=== PATIENT | male | born 1980 | race American Indian/Alaskan Native ===

== ENCOUNTER 2016-08-08 12:26 | Emergency (ER) | payer MEDICAID ==
[2016-08-08 13:03] LABS: Hematocrit 27.5 % (35.5-45.6); Hemoglobin 8.8 gm/dl (11.8-15.2); Mean Corpuscular HGB Conc 32 % (32-34); Mean Corpuscular Volume 74 fl (84-94); Platelet Count 651 K/mm3 (140-440); Red Blood Count 3.69 M/mm3 (3.65-5.03); Red Cell Distribution Width 18.4 % (13.2-15.2); White Blood Count 6.8 K/mm3 (4.5-11.0)
[2016-08-08 13:12] LABS: Anion Gap 21 mmol/L; BUN/Creatinine Ratio 18.33; Blood Urea Nitrogen 11 mg/dL (9-20); Calcium 9.3 mg/dL (8.4-10.2); Carbon Dioxide 22 mmol/L (22-30); Chloride 95.4 mmol/L (98-107); Glucose 90 mg/dL (75-100); Potassium 4.2 mmol/L (3.6-5.0); Sodium 134 mmol/L (137-145)
[2016-08-08 13:20] LABS: Mean Corpuscular Hemoglobin 24 pg (28-32)
--- NOTE | 2016-08-08 13:25 | XRay Report ---
ROUTINE CHEST, TWO VIEWS: HISTORY: Shortness of breath. A moderate size right perihilar infiltrate has developed since 06/10/15. This appears to be located in the superior segment of the right lower lobe. The left lung is clear. No pleural effusion or pneumothorax. Heart and mediastinal structures are unremarkable. Right subclavian vascular stent is noted. The bony structures are intact. IMPRESSION: Right lung infiltrate consistent with pneumonia. If no fever is present, further evaluation with CT chest with contrast is recommended.
[2016-08-08 14:06] LABS: Blastocytes % (Manual) 0 %; Eosinophils % (Manual) 0 % (0.0-4.3); Hypochromasia 1+
[2016-08-08 14:07] LABS: Anisocytosis 1+; Diff Status Complete; Ovalocytes 1+; Platelet Estimate Consistent w Auto
[2016-08-08] MEDS ORDERED: ZITHROMAX 500 MG in NACL 0.9% 250ML 250 ML IV ONE (23:18)
[2016-08-08] MEDS ORDERED: NACL 0.9% 1000 ML 1,000 ML IV ONE ×2 (23:18→23:56)
[2016-08-08] MEDS ORDERED: ROCEPHIN/NS 1 GM/50 ML 1 GM/50 ML BAG IV ONE (23:18)
[2016-08-08] MEDS ORDERED: DELTASONE PO ONE (23:46)
[2016-08-08] MEDS ORDERED: BACTRIM DS PO ONE (23:46)
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
[2016-08-09 00:49] VITALS: BP 113/68
== END 2016-08-09 00:50 | disposition left against medical advice (07) ==
LOC: ED 12:26
DX: J18.9 Pneumonia, unspecified organism (principal); F17.210 Nicotine dependence, cigarettes, uncomplicated; Z91.14 Patient's other noncompliance with medication regimen
CPT/HCPCS: 36415; 71020; 80048; 85007; 85025; 87040; 93005; 93010; 96365; 96368; 99284; J0456; J0696; J7030; J7050; J7512

== ENCOUNTER 2017-02-13 01:28 | Inpatient (IN) | payer MEDICAID ==
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
[2017-02-13] MEDS ORDERED: VANCOMYCIN VIAL IV ONE (02:39)
[2017-02-13] MEDS ORDERED: VANCOMYCIN 1,250 MG in NACL 0.9% 250ML 250 ML IV ONE (03:00)
[2017-02-13] MEDS ORDERED: VANCOMYCIN PHARMACY TO DOSE IV ONE (03:00)
--- NOTE | 2017-02-13 03:21 | XRay Report ---
FINAL REPORT EXAM: XR CHEST 1V AP HISTORY: SHORT OF BREATH TECHNIQUE: An AP view of the chest was submitted. There are no previous studies available for comparison FINDINGS: The heart size and mediastinum appear normal. The lungs are not congested. There is localized increased markings in the right lung base secondary to scarring/atelectasis. Pleural fluid is not seen. There is a vascular stent seen superimposed over the right apex. The bones and soft tissues otherwise well maintained. IMPRESSION: Localized increased markings in the right lung base secondary to scarring/atelectasis.
[2017-02-13 04:48] LABS: Hematocrit 27.3 % (35.5-45.6); Hemoglobin 8.8 gm/dl (11.8-15.2); Mean Corpuscular HGB Conc 32 % (32-34); Mean Corpuscular Volume 76 fl (84-94); Platelet Count 596 K/mm3 (140-440); Red Blood Count 3.59 M/mm3 (3.65-5.03); Red Cell Distribution Width 19.2 % (13.2-15.2); White Blood Count 6.7 K/mm3 (4.5-11.0)
[2017-02-13 04:51] LABS: Mean Corpuscular Hemoglobin 25 pg (28-32)
[2017-02-13 05:42] LABS: Alanine Aminotransferase 10 units/L (7-56); Albumin 2.9 g/dL (3.9-5); Albumin/Globulin Ratio 0.7 %; Alkaline Phosphatase 513 units/L (35-129); Anion Gap 18 mmol/L; BUN/Creatinine Ratio 26; Blood Urea Nitrogen 13 mg/dL (9-20); Calcium 8.6 mg/dL (8.4-10.2); Carbon Dioxide 25 mmol/L (22-30); Glucose 109 mg/dL (75-100); Potassium 4.4 mmol/L (3.6-5.0); Sodium 136 mmol/L (137-145); Total Protein 7.3 g/dL (6.3-8.2)
[2017-02-13] MEDS ORDERED: NACL 0.9% 1000 ML 1,000 ML IV ONE (05:42)
[2017-02-13] MEDS ORDERED: TORADOL IV ONE (05:44)
[2017-02-13] MEDS ORDERED: TYLENOL PO ONE (05:44)
[2017-02-13] MEDS ORDERED: ZOSYN/NS 3.375GM/50ML 3.375 GM/50 ML BAG IV SCH ×2 (06:00→14:00)
[2017-02-13] MEDS ORDERED: TYLENOL PO PRN (06:10)
[2017-02-13] MEDS ORDERED: DULCOLAX PR PRN (06:10)
[2017-02-13] MEDS ORDERED: MILK OF MAGNESIA PO PRN (06:10)
[2017-02-13] MEDS ORDERED: ZOFRAN IV PRN (06:10)
[2017-02-13] MEDS ORDERED: DIFLUCAN 200 MG/100 ML BAG IV ONE (06:17)
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
--- NOTE | 2017-02-13 07:28 | Cat Scan Report ---
CT HEAD WITHOUT CONTRAST INDICATION: Syncope. COMPARISON: None similar. FINDINGS: Noncontrast head CT demonstrates symmetric ventricles and sulci, though top normal/slightly prominent for the patient's age. Mild, benign bilateral basal ganglia calcifications. Slight periventricular hypodensities. No definite acute infarct, hemorrhage mass effect or midline shift. No abnormal extra axial fluid collections. Normal posterior fossa with preserved basilar cisterns. Normal eye globes. Mild ethmoid and sphenoid sinusitis, right more than left. Clear remainder imaged paranasal sinuses and mastoid air cells. Grossly intact calvarium and scalp. CONCLUSION: No acute intracranial CT abnormality with mild atrophy and sinusitis noted, as above. Please correlate. Thank you for the opportunity to participate in this patient's care.
[2017-02-13] MEDS ORDERED: TYLENOL ONE (08:34)
[2017-02-13 08:48] LABS: Anisocytosis 1+; Basophils % (Manual) 0 % (0.0-1.8); Blastocytes % (Manual) 0 %; Eosinophils % (Manual) 0 % (0.0-4.3); Hypochromasia 1+
[2017-02-13 08:49] LABS: Diff Status Complete; Elliptocytes Few; Ovalocytes Few
[2017-02-13] MEDS ORDERED: TORADOL ONE (09:21)
[2017-02-13] MEDS ORDERED: LOVENOX SUB-Q SCH (10:00)
[2017-02-13] MEDS ORDERED: DIFLUCAN PO SCH (10:00)
[2017-02-13 11:03] LABS: Bilirubin,Urine NEG (Negative); Blood,Urine NEG (Negative); Ketones,Urine NEG (Negative); Leukocyte Esterase,Urine NEG (Negative); Mucus,Urine FEW /HPF; Nitrite,Urine NEG (Negative); Protein,Urine <15 mg/dL mg/dL (Negative); Urobilinogen,Urine < 2.0 mg/dL (<2.0)
[2017-02-13] MEDS: LOVENOX SUB-Q SCH (13:15)
[2017-02-13] MEDS: NACL 0.9% 1000 ML 1,000 ML IV SCH (13:17)
[2017-02-13] MEDS: ZOSYN/NS 4.5GM/100ML 4.5 GM/100 ML VIAL IV SCH ×2 (15:03→22:34)
--- NOTE | 2017-02-13 17:39 | Event Note ---
Date: 02/13/17
[2017-02-14] MEDS: NACL 0.9% 1000 ML 1,000 ML IV SCH ×2 (05:26→23:48)
[2017-02-14] MEDS: ZOSYN/NS 4.5GM/100ML 4.5 GM/100 ML VIAL IV SCH ×3 (05:44→22:09)
[2017-02-14 06:28] LABS: Anion Gap 19 mmol/L; BUN/Creatinine Ratio 18; Blood Urea Nitrogen 7 mg/dL (9-20); Calcium 8.4 mg/dL (8.4-10.2); Carbon Dioxide 22 mmol/L (22-30); Chloride 97.5 mmol/L (98-107); Glucose 89 mg/dL (75-100); Potassium 4.2 mmol/L (3.6-5.0); Sodium 134 mmol/L (137-145)
[2017-02-14 06:43] LABS: Red Blood Count 3.29 M/mm3 (3.65-5.03)
[2017-02-14 06:44] LABS: Hematocrit 24.8 % (35.5-45.6); Hemoglobin 8.2 gm/dl (11.8-15.2); Mean Corpuscular HGB Conc 33 % (32-34); Mean Corpuscular Hemoglobin 25 pg (28-32); Mean Corpuscular Volume 75 fl (84-94); Platelet Count 553 K/mm3 (140-440)
[2017-02-14 07:53] LABS: Basophils % (Manual) 0 % (0.0-1.8); Blastocytes % (Manual) 0 %; Eosinophils % (Manual) 0 % (0.0-4.3)
[2017-02-14 07:54] LABS: Anisocytosis 1+; Diff Status Complete; Elliptocytes 1+; Platelet Estimate Consistent w Auto
[2017-02-14] MEDS: LOVENOX SUB-Q SCH ×2 (09:21→09:23)
[2017-02-14] MEDS: DIFLUCAN PO SCH (09:22)
--- NOTE | 2017-02-14 15:06 | Progress Note ---
Assessment and Plan Assessment and Plan Assessment SIRS Syncope Oral candidiasis HIV Plan Continue Zosyn, status post vancomycin and Zosyn in the emergency room Follow cultures, check d-dimer, VT head, cardiac enzymes Start fluconazole, DVT prophylaxis/Gi prophylaxis Subjective Date of service: 02/14/17 Principal diagnosis: Sirs Interval history: Improving Objective - Constitutional Vitals: Vital Signs - 12hr 02/14/17 02/14/17 05:10 07:35 Temperature 99.3 F 97.9 F Pulse Rate 83 79 Respiratory 19 14 Rate Blood Pressure 97/55 95/54 O2 Sat by Pulse 98 97 Oximetry General appearance: Present: no acute distress, well-nourished - EENT Eyes: PERRL, EOM intact ENT: hearing intact, clear oral mucosa Ears: bilateral: normal - Neck Neck: supple, normal ROM - Respiratory Respiratory effort: normal Respiratory: bilateral: CTA - Breasts Breasts: normal - Cardiovascular Rhythm: regular Heart Sounds: Present: S1 & S2. Absent: gallop, rub Extremities: pulses intact, No edema, normal color, Full ROM - Gastrointestinal General gastrointestinal: Present: soft, non-tender, non-distended, normal bowel sounds - Genitourinary Male genitourinary: normal - Integumentary Integumentary: clear, warm, dry - Musculoskeletal Musculoskeletal: 1, strength equal bilaterally - Neurologic Neurologic: moves all extremities - Psychiatric Psychiatric: memory intact, appropriate mood/affect, intact judgment & insight - Labs CBC & Chem 7: 02/14/17 05:56 02/14/17 05:56 Labs: Abnormal lab results 02/14/17 02/14/17 Range/Units 05:56 05:56 RBC 3.29 L (3.65-5.03) M/mm3 Hgb 8.2 L (11.8-15.2) gm/dl Hct 24.8 L (35.5-45.6) % MCV 75 L (84-94) fl MCH 25 L (28-32) pg RDW 19.0 H (13.2-15.2) % Plt Count 553 H (140-440) K/mm3 Seg Neuts % (Manual) 88.0 H (40.0-70.0) % Lymphocytes % (Manual) 0 L (13.4-35.0) % Monocytes % (Manual) 9.0 H (0.0-7.3) % Lymphocytes # (Manual) 0.0 L (1.2-5.4) K/mm3 Sodium 134 L (137-145) mmol/L Chloride 97.5 L (98-107) mmol/L BUN 7 L (9-20) mg/dL Creatinine 0.4 L (0.8-1.5) mg/dL
[2017-02-14] MEDS ORDERED: VANCOMYCIN PHARMACY TO DOSE IV SCH (16:00)
[2017-02-14] MEDS: VANCOMYCIN/NS 1 GM/250 ML 1 GM/250 ML BAG IV SCH (17:23)
[2017-02-15] MEDS: VANCOMYCIN/NS 1 GM/250 ML 1 GM/250 ML BAG IV SCH ×2 (05:50→18:43)
--- NOTE | 2017-02-15 09:01 | Progress Note ---
Assessment and Plan Assessment and plan: SIRS. Patient has been afebrile for the past 12 hours. Continue to monitor temperature curve. ID consultation ? RLL pneumonia. Continue antibiotics oral candidiasis. Continue Diflucan. HIV. per ID Sinusitis. Cont. abx History Interval history: patient states he feels better Hospitalist Physical - Constitutional Vitals: Temp Pulse Resp BP Pulse Ox 98.7 F 65 20 105/70 97 02/15/17 07:36 02/15/17 07:36 02/15/17 07:36 02/15/17 07:36 02/15/17 07:36 General appearance: Present: no acute distress, well-nourished - EENT Eyes: Present: PERRL, EOM intact ENT: hearing intact, clear oral mucosa, dentition normal - Neck Neck: Present: supple, normal ROM - Respiratory Respiratory effort: normal Respiratory: bilateral: CTA - Cardiovascular Rhythm: regular Heart Sounds: Present: S1 & S2. Absent: gallop, rub - Extremities Extremities: no ischemia, No edema, Full ROM - Abdominal General gastrointestinal: soft, non-tender, non-distended, normal bowel sounds - Integumentary Integumentary: Present: clear, warm, dry - Neurologic Neurologic: CNII-XII intact, moves all extremities Results - Labs CBC & Chem 7: 02/14/17 05:56 02/14/17 05:56 Labs: Laboratory Last Values WBC 6.0 K/mm3 (4.5-11.0) 02/14/17 05:56 RBC 3.29 M/mm3 (3.65-5.03) L 02/14/17 05:56 Hgb 8.2 gm/dl (11.8-15.2) L 02/14/17 05:56 Hct 24.8 % (35.5-45.6) L 02/14/17 05:56 MCV 75 fl (84-94) L 02/14/17 05:56 MCH 25 pg (28-32) L 02/14/17 05:56 MCHC 33 % (32-34) 02/14/17 05:56 RDW 19.0 % (13.2-15.2) H 02/14/17 05:56 Plt Count 553 K/mm3 (140-440) H 02/14/17 05:56 Lymph % (Auto) Hand Finisher 02/13/17 04:19 [place] % (Auto) Hand Finisher 02/13/17 04:19 Eos % (Auto) Hand Finisher 02/13/17 04:19 Baso % (Auto) Hand Finisher 02/13/17 04:19 Lymph # Hand Finisher 02/13/17 04:19 [place] # Hand Finisher 02/13/17 04:19 Eos # Hand Finisher 02/13/17 04:19 Baso # Hand Finisher 02/13/17 04:19 Add Manual Diff Complete 02/14/17 05:56 Total Counted 100 02/14/17 05:56 Seg Neutrophils % Hand Finisher 02/13/17 04:19 Seg Neuts % (Manual) 88.0 % (40.0-70.0) H 02/14/17 05:56 Band Neutrophils % 3.0 % 02/14/17 05:56 Lymphocytes % (Manual) 0 % (13.4-35.0) L 02/14/17 05:56 Reactive Lymphs % (Man) 0 % 02/14/17 05:56 Monocytes % (Manual) 9.0 % (0.0-7.3) H 02/14/17 05:56 Eosinophils % (Manual) 0 % (0.0-4.3) 02/14/17 05:56 Basophils % (Manual) 0 % (0.0-1.8) 02/14/17 05:56 Metamyelocytes % 0 % 02/14/17 05:56 Myelocytes % 0 % 02/14/17 05:56 Promyelocytes % 0 % 02/14/17 05:56 Blast Cells % 0 % 02/14/17 05:56 Nucleated RBC % Not Reportable 02/14/17 05:56 Seg Neutrophils # Hand Finisher 02/13/17 04:19 Seg Neutrophils # Man 5.3 K/mm3 (1.8-7.7) 02/14/17 05:56 Band Neutrophils # 0.2 K/mm3 02/14/17 05:56 Lymphocytes # (Manual) 0.0 K/mm3 (1.2-5.4) L 02/14/17 05:56 Abs React Lymphs (Man) 0.0 K/mm3 02/14/17 05:56 Monocytes # (Manual) 0.5 K/mm3 (0.0-0.8) 02/14/17 05:56 Eosinophils # (Manual) 0.0 K/mm3 (0.0-0.4) 02/14/17 05:56 Basophils # (Manual) 0.0 K/mm3 (0.0-0.1) 02/14/17 05:56 Metamyelocytes # 0.0 K/mm3 02/14/17 05:56 Myelocytes # 0.0 K/mm3 02/14/17 05:56 Promyelocytes # 0.0 K/mm3 02/14/17 05:56 Blast Cells # 0.0 K/mm3 02/14/17 05:56 WBC Morphology Not Reportable 02/14/17 05:56 Hypersegmented Neuts Not Reportable 02/14/17 05:56 Hyposegmented Neuts Not Reportable 02/14/17 05:56 Hypogranular Neuts Not Reportable 02/14/17 05:56 Smudge Cells Not Reportable 02/14/17 05:56 Toxic Granulation Not Reportable 02/14/17 05:56 Toxic Vacuolation Not Reportable 02/14/17 05:56 Dohle Bodies Not Reportable 02/14/17 05:56 Pelger-Huet Anomaly Not Reportable 02/14/17 05:56 Tarsha Rods Not Reportable 02/14/17 05:56 Platelet Estimate Consistent w auto 02/14/17 05:56 Clumped Platelets Not Reportable 02/14/17 05:56 Plt Clumps, EDTA Not Reportable 02/14/17 05:56 Large Platelets Not Reportable 02/14/17 05:56 Giant Platelets Not Reportable 02/14/17 05:56 Platelet Satelliting Not Reportable 02/14/17 05:56 Plt Morphology Comment Not Reportable 02/14/17 05:56 RBC Morphology Not Reportable 02/14/17 05:56 Dimorphic RBCs Not Reportable 02/14/17 05:56 Polychromasia Not Reportable 02/14/17 05:56 Hypochromasia Not Reportable 02/14/17 05:56 Poikilocytosis Not Reportable 02/14/17 05:56 Anisocytosis 1+ 02/14/17 05:56 Microcytosis Not Reportable 02/14/17 05:56 Macrocytosis Not Reportable 02/14/17 05:56 Spherocytes Not Reportable 02/14/17 05:56 Pappenheimer Bodies Not Reportable 02/14/17 05:56 Sickle Cells Not Reportable 02/14/17 05:56 Target Cells Not Reportable 02/14/17 05:56 Tear Drop Cells Not Reportable 02/14/17 05:56 Ovalocytes Not Reportable 02/14/17 05:56 Helmet Cells Not Reportable 02/14/17 05:56 Ly-[place] Bodies Not Reportable 02/14/17 05:56 [place] Rings Not Reportable 02/14/17 05:56 [place] Cells Not Reportable 02/14/17 05:56 Bite Cells Not Reportable 02/14/17 05:56 Crenated Cell Not Reportable 02/14/17 05:56 Elliptocytes 1+ 02/14/17 05:56 Acanthocytes (Spur) Not Reportable 02/14/17 05:56 Rouleaux Not Reportable 02/14/17 05:56 Hemoglobin C Crystals Not Reportable 02/14/17 05:56 Schistocytes Not Reportable 02/14/17 05:56 Malaria parasites Not Reportable 02/14/17 05:56 Boy Bodies Not Reportable 02/14/17 05:56 Hem Pathologist Commnt No 02/14/17 05:56 APTT 37.3 Sec. (24.2-36.6) H 02/13/17 04:19 D-Dimer 334.1 ng/mlDDU (0-234) H 02/13/17 04:19 Sodium 134 mmol/L (137-145) L 02/14/17 05:56 Potassium 4.2 mmol/L (3.6-5.0) 02/14/17 05:56 Chloride 97.5 mmol/L (98-107) L 02/14/17 05:56 Carbon Dioxide 22 mmol/L (22-30) 02/14/17 05:56 Anion Gap 19 mmol/L 02/14/17 05:56 BUN 7 mg/dL (9-20) L 02/14/17 05:56 Creatinine 0.4 mg/dL (0.8-1.5) L 02/14/17 05:56 Estimated GFR > 60 ml/min 02/14/17 05:56 BUN/Creatinine Ratio 18 % 02/14/17 05:56 Glucose 89 mg/dL (75-100) 02/14/17 05:56 Lactic Acid 0.80 mmol/L (0.7-2.0) 02/13/17 04:19 Calcium 8.4 mg/dL (8.4-10.2) 02/14/17 05:56 Total Bilirubin 0.40 mg/dL (0.1-1.2) 02/13/17 04:19 AST 30 units/L (5-40) 02/13/17 04:19 ALT 10 units/L (7-56) 02/13/17 04:19 Alkaline Phosphatase 513 units/L (35-129) H 02/13/17 04:19 Total Protein 7.3 g/dL (6.3-8.2) 02/13/17 04:19 Albumin 2.9 g/dL (3.9-5) L 02/13/17 04:19 Albumin/Globulin Ratio 0.7 % 02/13/17 04:19 Urine Color Yellow (Yellow) 02/13/17 10:40 Urine Turbidity Clear (Clear) 02/13/17 10:40 Urine pH 6.0 (5.0-7.0) 02/13/17 10:40 Ur Specific [place] 1.014 (1.003-1.030) 02/13/17 10:40 Urine Protein <15 mg/dl mg/dL (Negative) 02/13/17 10:40 Urine Glucose (UA) Neg mg/dL (Negative) 02/13/17 10:40 Urine Ketones Neg mg/dL (Negative) 02/13/17 10:40 Urine Blood Neg (Negative) 02/13/17 10:40 Urine Nitrite Neg (Negative) 02/13/17 10:40 Urine Bilirubin Neg (Negative) 02/13/17 10:40 Urine Urobilinogen < 2.0 mg/dL (<2.0) 02/13/17 10:40 Ur Leukocyte Esterase Neg (Negative) 02/13/17 10:40 Urine WBC (Auto) 4.0 /HPF (0.0-6.0) 02/13/17 10:40 Urine RBC (Auto) 2.0 /HPF (0.0-6.0) 02/13/17 10:40 Urine Mucus Few /HPF 02/13/17 10:40 Blood Type B POSITIVE 02/13/17 04:19 Antibody Screen Negative 02/13/17 04:19
[2017-02-15] MEDS: DIFLUCAN PO SCH (09:28)
[2017-02-15] MEDS: ZOSYN/NS 4.5GM/100ML 4.5 GM/100 ML VIAL IV SCH ×3 (13:11→23:12)
[2017-02-15] MEDS: NACL 0.9% 1000 ML 1,000 ML IV SCH ×2 (13:11→23:05)
[2017-02-15] MEDS: LOVENOX SUB-Q SCH (18:39)
[2017-02-15 23:14] LABS: Hematocrit 24.4 % (35.5-45.6); Hemoglobin 7.8 gm/dl (11.8-15.2); Mean Corpuscular HGB Conc 32 % (32-34); Mean Corpuscular Volume 76 fl (84-94); Platelet Count 544 K/mm3 (140-440); Red Blood Count 3.19 M/mm3 (3.65-5.03); Red Cell Distribution Width 18.6 % (13.2-15.2); White Blood Count 4.8 K/mm3 (4.5-11.0)
[2017-02-15 23:15] LABS: Mean Corpuscular Hemoglobin 25 pg (28-32)
[2017-02-15 23:29] LABS: Alanine Aminotransferase 9 units/L (7-56); Albumin 2.3 g/dL (3.9-5); Albumin/Globulin Ratio 0.6 %; Alkaline Phosphatase 408 units/L (35-129); Anion Gap 21 mmol/L; BUN/Creatinine Ratio 12; Blood Urea Nitrogen 6 mg/dL (9-20); Calcium 7.6 mg/dL (8.4-10.2); Carbon Dioxide 19 mmol/L (22-30); Chloride 96.5 mmol/L (98-107); Glucose 135 mg/dL (75-100); Sodium 132 mmol/L (137-145); Total Protein 5.9 g/dL (6.3-8.2)
[2017-02-16 00:11] LABS: Anisocytosis 1+; Basophils % (Manual) 0 % (0.0-1.8); Blastocytes % (Manual) 0 %; Diff Status Complete; Eosinophils % (Manual) 0 % (0.0-4.3); Hypochromasia 1+; Platelet Estimate Consistent w Auto; Schistocytes Rare
[2017-02-16] MEDS: VANCOMYCIN/NS 1 GM/250 ML 1 GM/250 ML BAG IV SCH ×2 (03:30→16:15)
[2017-02-16 05:39] LABS: Hematocrit 24.6 % (35.5-45.6); Hemoglobin 7.8 gm/dl (11.8-15.2); Mean Corpuscular HGB Conc 32 % (32-34); Mean Corpuscular Volume 76 fl (84-94); Platelet Count 543 K/mm3 (140-440); Red Blood Count 3.22 M/mm3 (3.65-5.03); Red Cell Distribution Width 18.7 % (13.2-15.2); White Blood Count 5.2 K/mm3 (4.5-11.0)
[2017-02-16 05:40] LABS: Mean Corpuscular Hemoglobin 24 pg (28-32)
[2017-02-16] MEDS: ZOSYN/NS 4.5GM/100ML 4.5 GM/100 ML VIAL IV SCH ×2 (05:51→13:40)
[2017-02-16 05:58] LABS: Anion Gap 23 mmol/L; BUN/Creatinine Ratio 12; Blood Urea Nitrogen 6 mg/dL (9-20); Calcium 7.9 mg/dL (8.4-10.2); Carbon Dioxide 17 mmol/L (22-30); Chloride 100.6 mmol/L (98-107); Glucose 104 mg/dL (75-100); Potassium 4.3 mmol/L (3.6-5.0); Sodium 136 mmol/L (137-145)
[2017-02-16 06:32] LABS: Anisocytosis 2+; Basophils % (Manual) 0 % (0.0-1.8); Blastocytes % (Manual) 0 %; Elliptocytes 1+; Hypochromasia 1+; Microcytosis 1+; Ovalocytes 1+; Poikilocytosis 2+
[2017-02-16 06:33] LABS: Burr Cells 1+; Diff Status Complete; Platelet Estimate Appears Increased; Schistocytes Rare; Tear Drop Cells Few
--- NOTE | 2017-02-16 09:41 | Progress Note ---
Assessment and Plan Assessment and plan: SIRS. Patient still with fevers. ID consultation pending. Blood cultures negative X 72 hours. ? RLL pneumonia. Repeat CXR. Continue antibiotics oral candidiasis. Continue Diflucan. HIV. per ID Sinusitis. Cont. abx History Interval history: patient states he feels better Hospitalist Physical - Constitutional Vitals: Temp Pulse Resp BP Pulse Ox 99.2 F 82 20 104/63 97 02/16/17 07:28 02/16/17 07:28 02/16/17 07:28 02/16/17 07:28 02/16/17 07:28 General appearance: Present: no acute distress, well-nourished - EENT Eyes: Present: PERRL, EOM intact ENT: hearing intact, clear oral mucosa, dentition normal - Neck Neck: Present: supple, normal ROM - Respiratory Respiratory effort: normal Respiratory: bilateral: CTA - Cardiovascular Rhythm: regular Heart Sounds: Present: S1 & S2. Absent: gallop, rub - Extremities Extremities: no ischemia, No edema, Full ROM - Abdominal General gastrointestinal: soft, non-tender, non-distended, normal bowel sounds - Integumentary Integumentary: Present: clear, warm, dry - Neurologic Neurologic: CNII-XII intact, moves all extremities Results - Labs CBC & Chem 7: 02/16/17 04:50 02/16/17 04:50 Labs: Laboratory Last Values WBC 5.2 K/mm3 (4.5-11.0) 02/16/17 04:50 RBC 3.22 M/mm3 (3.65-5.03) L 02/16/17 04:50 Hgb 7.8 gm/dl (11.8-15.2) L 02/16/17 04:50 Hct 24.6 % (35.5-45.6) L 02/16/17 04:50 MCV 76 fl (84-94) L 02/16/17 04:50 MCH 24 pg (28-32) L 02/16/17 04:50 MCHC 32 % (32-34) 02/16/17 04:50 RDW 18.7 % (13.2-15.2) H 02/16/17 04:50 Plt Count 543 K/mm3 (140-440) H 02/16/17 04:50 Lymph % (Auto) Vacuum Worker 02/13/17 04:19 [place] % (Auto) Vacuum Worker 02/13/17 04:19 Eos % (Auto) Vacuum Worker 02/13/17 04:19 Baso % (Auto) Vacuum Worker 02/13/17 04:19 Lymph # Vacuum Worker 02/13/17 04:19 [place] # Vacuum Worker 02/13/17 04:19 Eos # Vacuum Worker 02/13/17 04:19 Baso # Vacuum Worker 02/13/17 04:19 Add Manual Diff Complete 02/16/17 04:50 Total Counted 100 02/16/17 04:50 Seg Neutrophils % Vacuum Worker 02/13/17 04:19 Seg Neuts % (Manual) 89.0 % (40.0-70.0) H 02/16/17 04:50 Band Neutrophils % 3.0 % 02/16/17 04:50 Lymphocytes % (Manual) 2.0 % (13.4-35.0) L 02/16/17 04:50 Reactive Lymphs % (Man) 0 % 02/16/17 04:50 Monocytes % (Manual) 3.0 % (0.0-7.3) 02/16/17 04:50 Eosinophils % (Manual) 1.0 % (0.0-4.3) 02/16/17 04:50 Basophils % (Manual) 0 % (0.0-1.8) 02/16/17 04:50 Metamyelocytes % 2.0 % 02/16/17 04:50 Myelocytes % 0 % 02/16/17 04:50 Promyelocytes % 0 % 02/16/17 04:50 Blast Cells % 0 % 02/16/17 04:50 Nucleated RBC % Not Reportable 02/16/17 04:50 Seg Neutrophils # Vacuum Worker 02/13/17 04:19 Seg Neutrophils # Man 4.6 K/mm3 (1.8-7.7) 02/16/17 04:50 Band Neutrophils # 0.2 K/mm3 02/16/17 04:50 Lymphocytes # (Manual) 0.1 K/mm3 (1.2-5.4) L 02/16/17 04:50 Abs React Lymphs (Man) 0.0 K/mm3 02/16/17 04:50 Monocytes # (Manual) 0.2 K/mm3 (0.0-0.8) 02/16/17 04:50 Eosinophils # (Manual) 0.1 K/mm3 (0.0-0.4) 02/16/17 04:50 Basophils # (Manual) 0.0 K/mm3 (0.0-0.1) 02/16/17 04:50 Metamyelocytes # 0.1 K/mm3 02/16/17 04:50 Myelocytes # 0.0 K/mm3 02/16/17 04:50 Promyelocytes # 0.0 K/mm3 02/16/17 04:50 Blast Cells # 0.0 K/mm3 02/16/17 04:50 WBC Morphology Not Reportable 02/16/17 04:50 Hypersegmented Neuts Not Reportable 02/16/17 04:50 Hyposegmented Neuts Not Reportable 02/16/17 04:50 Hypogranular Neuts Not Reportable 02/16/17 04:50 Smudge Cells Not Reportable 02/16/17 04:50 Toxic Granulation Not Reportable 02/16/17 04:50 Toxic Vacuolation Not Reportable 02/16/17 04:50 Dohle Bodies Not Reportable 02/16/17 04:50 Pelger-Huet Anomaly Not Reportable 02/16/17 04:50 Tarsha Rods Not Reportable 02/16/17 04:50 Platelet Estimate Appears increased 02/16/17 04:50 Clumped Platelets Not Reportable 02/16/17 04:50 Plt Clumps, EDTA Not Reportable 02/16/17 04:50 Large Platelets Not Reportable 02/16/17 04:50 Giant Platelets Not Reportable 02/16/17 04:50 Platelet Satelliting Not Reportable 02/16/17 04:50 Plt Morphology Comment Not Reportable 02/16/17 04:50 RBC Morphology Not Reportable 02/16/17 04:50 Dimorphic RBCs Not Reportable 02/16/17 04:50 Polychromasia Not Reportable 02/16/17 04:50 Hypochromasia 1+ 02/16/17 04:50 Poikilocytosis 2+ 02/16/17 04:50 Anisocytosis 2+ 02/16/17 04:50 Microcytosis 1+ 02/16/17 04:50 Macrocytosis Not Reportable 02/16/17 04:50 Spherocytes Not Reportable 02/16/17 04:50 Pappenheimer Bodies Not Reportable 02/16/17 04:50 Sickle Cells Not Reportable 02/16/17 04:50 Target Cells Not Reportable 02/16/17 04:50 Tear Drop Cells Few 02/16/17 04:50 Ovalocytes 1+ 02/16/17 04:50 Helmet Cells Not Reportable 02/16/17 04:50 Ly-[place] Bodies Not Reportable 02/16/17 04:50 [place] Rings Not Reportable 02/16/17 04:50 [place] Cells 1+ 02/16/17 04:50 Bite Cells Not Reportable 02/16/17 04:50 Crenated Cell Not Reportable 02/16/17 04:50 Elliptocytes 1+ 02/16/17 04:50 Acanthocytes (Spur) Not Reportable 02/16/17 04:50 Rouleaux Not Reportable 02/16/17 04:50 Hemoglobin C Crystals Not Reportable 02/16/17 04:50 Schistocytes Rare 02/16/17 04:50 Malaria parasites Not Reportable 02/16/17 04:50 Boy Bodies Not Reportable 02/16/17 04:50 Hem Pathologist Commnt No 02/16/17 04:50 APTT 37.3 Sec. (24.2-36.6) H 02/13/17 04:19 D-Dimer 334.1 ng/mlDDU (0-234) H 02/13/17 04:19 Sodium 136 mmol/L (137-145) L 02/16/17 04:50 Potassium 4.3 mmol/L (3.6-5.0) 02/16/17 04:50 Chloride 100.6 mmol/L (98-107) 02/16/17 04:50 Carbon Dioxide 17 mmol/L (22-30) L 02/16/17 04:50 Anion Gap 23 mmol/L 02/16/17 04:50 BUN 6 mg/dL (9-20) L 02/16/17 04:50 Creatinine 0.5 mg/dL (0.8-1.5) L 02/16/17 04:50 Estimated GFR > 60 ml/min 02/16/17 04:50 BUN/Creatinine Ratio 12 % 02/16/17 04:50 Glucose 104 mg/dL (75-100) H 02/16/17 04:50 Lactic Acid 0.80 mmol/L (0.7-2.0) 02/13/17 04:19 Calcium 7.9 mg/dL (8.4-10.2) L 02/16/17 04:50 Total Bilirubin 0.20 mg/dL (0.1-1.2) 02/15/17 22:38 AST 34 units/L (5-40) 02/15/17 22:38 ALT 9 units/L (7-56) 02/15/17 22:38 Alkaline Phosphatase 408 units/L (35-129) H 02/15/17 22:38 Total Protein 5.9 g/dL (6.3-8.2) L 02/15/17 22:38 Albumin 2.3 g/dL (3.9-5) L 02/15/17 22:38 Albumin/Globulin Ratio 0.6 % 02/15/17 22:38 Urine Color Yellow (Yellow) 02/13/17 10:40 Urine Turbidity Clear (Clear) 02/13/17 10:40 Urine pH 6.0 (5.0-7.0) 02/13/17 10:40 Ur Specific [place] 1.014 (1.003-1.030) 02/13/17 10:40 Urine Protein <15 mg/dl mg/dL (Negative) 02/13/17 10:40 Urine Glucose (UA) Neg mg/dL (Negative) 02/13/17 10:40 Urine Ketones Neg mg/dL (Negative) 02/13/17 10:40 Urine Blood Neg (Negative) 02/13/17 10:40 Urine Nitrite Neg (Negative) 02/13/17 10:40 Urine Bilirubin Neg (Negative) 02/13/17 10:40 Urine Urobilinogen < 2.0 mg/dL (<2.0) 02/13/17 10:40 Ur Leukocyte Esterase Neg (Negative) 02/13/17 10:40 Urine WBC (Auto) 4.0 /HPF (0.0-6.0) 02/13/17 10:40 Urine RBC (Auto) 2.0 /HPF (0.0-6.0) 02/13/17 10:40 Urine Mucus Few /HPF 02/13/17 10:40 Blood Type B POSITIVE 02/13/17 04:19 Antibody Screen Negative 02/13/17 04:19
[2017-02-16] MEDS: LOVENOX SUB-Q SCH ×2 (09:59→10:00)
[2017-02-16] MEDS: DIFLUCAN PO SCH (09:59)
[2017-02-16] MEDS: NACL 0.9% 1000 ML 1,000 ML IV SCH ×2 (10:07→18:17)
--- NOTE | 2017-02-16 18:07 | Consultation ---
History of Present Illness - Reason for Consult Consult date: 02/16/17 HIV/SIRS Requesting physician: KOTA LERMA - History of Present Illness 36 years old male with history of HIV infection diagnosed in 2013, has been followed-up at [place] [facility], however he was recently admitted at [facility] in [place], where he was diagnosed with a non- tuberculosis mycobacterial infection. Patient was given azithromycin, INH, rifampin, ethambutol. He takes Bactrim DS for prophylaxis and fluconazole. He is not taking ART. He has not had a follow-up at [facility]. Unfortunately, patient was readmitted on the 2016 due to generalized malaise, cold sensation, productive white sputum cough, almost syncope. He is taking all meds given by [facility] in [place]. Denies N/V/D, SOB, OCONNELL, urinary symptoms. In the emergency room, initial temperature was 101, heart rate 122, respirations 17, O2 sat 88, BP 90s/60s. Initial white count 6.7. Hemoglobin 8.8. Creatinine 0.5. Lactic acid 0.8. Urinalysis is negative. Flu test negative. Chest x-ray showed localized increased markings in the right lower lobe. CT of the head showed mild ethmoid and sphenoid sinuses. Microbiology: Blood cultures: 02/13 neg Urine cultures: Respiratory cultures: Influenza: neg Current Antimicrobials: fluconazole zosyn vanco Previous Antimicrobials: Past History Past Medical History: other (HIV infection ) Past Surgical History: No surgical history Social history: no significant social history. denies: alcohol abuse, prescription drug abuse, IV drug use Family history: no significant family history Medications and Allergies Allergies Allergy/AdvReac Type Severity Reaction Status Date / Time acetaminophen [From Tylenol] Allergy Unknown Verified 02/13/17 09:26 Home Medications Medication Instructions Recorded Confirmed Last Taken Type Fluconazole [Diflucan TAB] 100 mg PO QDAY #13 tablet 06/11/15 08/08/16 Unknown Rx HYDROcodone/APAP 7.5-325 [[place]] 7.5 mg PO Q6HR PRN #20 dose 06/11/15 08/08/16 Unknown Rx Azithromycin [Zithromax Z-DEL] 1 dose PO DAILY 5 Days tab 06/12/15 08/08/16 Unknown Rx Promethazine [Phenergan TAB] 25 mg PO Q6HR PRN #20 tab 06/12/15 08/08/16 Unknown Rx Sulfamethoxazole/Trimethoprim 2 each PO TID 14 Days tablet 06/12/15 08/08/16 Unknown Rx [Bactrim DS TAB] Acyclovir [Zovirax Cap] 400 mg PO TID #21 cap 07/09/15 08/08/16 Unknown Rx Triamcinolone 0.5% [Kenalog 0.5% 1 applic TP TID #1 tube 07/09/15 08/08/16 Unknown Rx CREAM] diphenhydrAMINE [Benadryl CAP] 25 mg PO Q8HR PRN #21 capsule 07/09/15 08/08/16 Unknown Rx Fluconazole [Diflucan TAB] 100 mg PO QDAY #15 tablet 12/10/15 08/08/16 Unknown Rx Albuterol Sulfate [Proair 90 mcg IH Q4HR PRN #2 aer.[email or web address].[id number] 08/08/16 Unknown Rx Respiclick] Levofloxacin [Levaquin TAB] 500 mg PO QDAY #5 tablet 08/08/16 Unknown Rx Sulfamethoxazole/Trimethoprim 9.5 ml PO TID #750 ml 08/08/16 Unknown Rx [Bactrim 200-40 mg/5 ml Oral Liq] predniSONE [Deltasone] 40 mg PO QDAY #41 tab 08/08/16 Unknown Rx Active Meds: Active Medications Acetaminophen (Tylenol) 650 mg PO Q4H PRN PRN Reason: Pain MILD(1-3)/Fever >100.5/ALLAN Last Admin: 02/14/17 23:51 Dose: 650 mg Bisacodyl (Dulcolax) 10 mg AL QDAY PRN PRN Reason: Constipation unrelieved by MOM Enoxaparin Sodium (Lovenox) 40 mg SUB-Q QDAY@1000 MEENA Last Admin: 02/16/17 10:00 Dose: Not Given Fluconazole (Diflucan) 100 mg PO QDAY MEENA Last Admin: 02/16/17 09:59 Dose: 100 mg Sodium Chloride (Nacl 0.9% 1000 Ml) 1,000 mls @ 150 mls/hr IV DIRECT MEENA Last Admin: 02/16/17 10:07 Dose: 150 mls/hr Piperacillin Sod/Tazobactam Sod (Zosyn/Ns 4.5gm/100ml) 4.5 gm in 100 mls @ 200 mls/hr IV Q8HR [facility] Last Admin: 02/16/17 13:40 Dose: 200 mls/hr Vancomycin HCl (Vancomycin/Ns 1 Gm/250 Ml) 1 gm in 250 mls @ 166.667 mls/hr IV Q12H MEENA Last Admin: 02/16/17 16:15 Dose: 166.667 mls/hr Magnesium Hydroxide (Milk Of Magnesia) 30 ml PO Q4H PRN PRN Reason: Constipation Ondansetron HCl (Zofran) 4 mg IV Q8H PRN PRN Reason: N/V unrelieved by Reglan Vancomycin HCl (Vancomycin Pharmacy To Dose) 1 each IV PKCONSULT MEENA PRN Reason: Protocol Review of Systems All systems: negative (as per HPI rest neg) Physical Examination - Physical Exam Narrative exam: General appearance: Alert in NAD, conversant Eyes: anicteric sclerae, moist conjunctivae; no lid-lag; PERRLA HENT: Atraumatic; oropharynx clear Neck: Trachea midline; supple, no thyromegaly or lymphadenopathy Lungs: scattered rhonchi CV: RRR Abdomen: Soft, non-tender Extremities: No peripheral edema or extremity lymphadenopathy Skin: Normal temperature, turgor and texture; no rash, ulcers or subcutaneous nodules Psych: Appropriate affect, alert and oriented to person, place and time. Neuro: alert and oriented x 3. Moving all extermities Lines: No CVL / PICC - Constitutional Vitals: Vital Signs Temp Pulse Resp BP Pulse Ox 99.3 F 90 20 94/54 99 02/16/17 16:21 02/16/17 16:21 02/16/17 16:21 02/16/17 16:21 02/16/17 16:21 Temperature -Last 24 Hours Temperature 99.3 F Temperature 99.2 F Temperature 100.5 F Temperature 98.3 F Temperature 98.1 F Results - Labs CBC & Chem 7: 02/16/17 04:50 02/16/17 04:50 Labs: Abnormal lab results 02/15/17 02/15/17 02/16/17 Range/Units 22:38 22:38 04:50 RBC 3.19 L 3.22 L (3.65-5.03) M/mm3 Hgb 7.8 L 7.8 L (11.8-15.2) gm/dl Hct 24.4 L 24.6 L (35.5-45.6) % MCV 76 L 76 L (84-94) fl MCH 25 L 24 L (28-32) pg RDW 18.6 H 18.7 H (13.2-15.2) % Plt Count 544 H 543 H (140-440) K/mm3 Seg Neuts % (Manual) 85.0 H 89.0 H (40.0-70.0) % Lymphocytes % (Manual) 5.0 L 2.0 L (13.4-35.0) % Monocytes % (Manual) 10.0 H (0.0-7.3) % Lymphocytes # (Manual) 0.2 L 0.1 L (1.2-5.4) K/mm3 Sodium 132 L (137-145) mmol/L Chloride 96.5 L (98-107) mmol/L Carbon Dioxide 19 L (22-30) mmol/L BUN 6 L (9-20) mg/dL Creatinine 0.5 L (0.8-1.5) mg/dL Glucose 135 H (75-100) mg/dL Calcium 7.6 L (8.4-10.2) mg/dL Alkaline Phosphatase 408 H (35-129) units/L Total Protein 5.9 L (6.3-8.2) g/dL Albumin 2.3 L (3.9-5) g/dL // Range/Units 04:50 RBC (3.65-5.03) M/mm3 Hgb (11.8-15.2) gm/dl Hct (35.5-45.6) % MCV (84-94) fl MCH (28-32) pg RDW (13.2-15.2) % Plt Count (140-440) K/mm3 Seg Neuts % (Manual) (40.0-70.0) % Lymphocytes % (Manual) (13.4-35.0) % Monocytes % (Manual) (0.0-7.3) % Lymphocytes # (Manual) (1.2-5.4) K/mm3 Sodium 136 L (137-145) mmol/L Chloride (98-107) mmol/L Carbon Dioxide 17 L (22-30) mmol/L BUN 6 L (9-20) mg/dL Creatinine 0.5 L (0.8-1.5) mg/dL Glucose 104 H (75-100) mg/dL Calcium 7.9 L (8.4-10.2) mg/dL Alkaline Phosphatase (35-129) units/L Total Protein (6.3-8.2) g/dL Albumin (3.9-5) g/dL Assessment and Plan Assessment: 1) SIRS: Present on admission, manifested by fever, tachycardia, hypotension. Etiology unclear. 2) ?? Recent Non-TB mycobacterial infection: diagnosed at [facility] and given azithromycin, INH, rifampin, ethambutol. Unclear site ? lungs 3) HIV infection: diagnosed in 2013 unknown CD4/VL 4) Hypoxemia ? etiology ? PJP Plan: -obtain Chest CT -obtain [facility] medical records -start azithromycin 500 mg po qday, INH 300 mg q day, rifampin 600 mg q day, ethambutol 800 mg qday. -follow-up blood cultures -obtain AFB-blood cultures and cryptococcal serum antigen -continue bactrim DS and fluconazole -stop zosyn and vancomcyin for now -check CD4/VL Thank you Dr Lerma for your consultation, will follow up with you. Rubi Cadet MD Infectious Diseases Specialist [facility] M [phone] O [phone]
[2017-02-16] MEDS: RIFADIN PO SCH (20:45)
[2017-02-16] MEDS: MYAMBUTOL PO SCH (20:45)
[2017-02-16] MEDS: ISONIAZID PO SCH (20:45)
[2017-02-16] MEDS: ZITHROMAX PO SCH (20:45)
[2017-02-16] MEDS: LEVAQUIN 750MG/150ML 750 MG/150 ML BAG IV SCH (20:45)
--- NOTE | 2017-02-16 21:36 | Cat Scan Report ---
FINAL REPORT PROCEDURE: CT chest without and with contrast. TECHNIQUE: Computerized axial tomography of the chest was performed before and after the IV injection of iodinated nonionic contrast. HISTORY: AIDS and hypoxemia eval for pneumonia / PCP/ mass. COMPARISON: No prior studies are available for comparison. TECHNICAL QUALITY: Satisfactory. FINDINGS: The trachea and central bronchi appear normal. There is a fluid and air containing cavity in the superior segment of the right lower lobe. This measures approximately 3.6 centimeters x 1.2 centimeters in cross-section. This is consistent with a lung abscess. There is some additional opacity adjacent to this cavity consistent with consolidation. There also numerous tiny nodular opacities in portions of the right lower lobe. This has a tree-in-bud appearance. Pneumonia is considered likely. There is minimal pleural parenchymal opacity located laterally at the left lung apex. This could represent scarring or a small focus of infection. There is also a small area of consolidation located medially within the superior segment of the left lower lobe. There may be a tiny cavity present. This could represent 2nd developing log abscess. There are no pleural effusions. The thoracic aorta has a normal caliber. The central pulmonary arteries enhance normally. There is no mediastinal adenopathy. The heart size is normal. The adrenal glands are not enlarged. The thoracic skeleton appears intact. IMPRESSION: Bilateral lower lobe pneumonia. Right lower lobe lung abscess. Possible small developing 2nd abscess in the left lower lobe.
[2017-02-17] MEDS: NACL 0.9% 1000 ML 1,000 ML IV SCH (04:36)
[2017-02-17 08:11] VITALS: BP 97/51
--- NOTE | 2017-02-17 09:20 | XRay Report ---
CHEST 2 VIEWS INDICATION: Right lower lobe infiltrate. COMPARISON: Yesterday's chest CT and 02/13/2017 CXR. FINDINGS: PA and lateral chest radiographs demonstrate approximately 5.5 x 4.3 cm part cavitary consolidation in superior segment of the right lower lobe, appearing to extend from the right hilum. Clear remainder lungs. Normal cardiomediastinal silhouette. Right subclavian stent again noted. Unremarkable bones. CONCLUSION: Right lower lobe cavitary consolidation and few other findings, as above. Small opacity/pneumonia in superior segment of left lower lobe seen on yesterday's CT not well visualized plain radiographically. Thank you for the opportunity to participate in this patient's care.
[2017-02-17] MEDS: LEVAQUIN 750MG/150ML 750 MG/150 ML BAG IV SCH (10:13)
[2017-02-17] MEDS: DIFLUCAN PO SCH (10:13)
[2017-02-17] MEDS: ISONIAZID PO SCH (10:13)
[2017-02-17] MEDS: LOVENOX SUB-Q SCH (10:14)
[2017-02-17] MEDS: MYAMBUTOL PO SCH (10:14)
[2017-02-17] MEDS: ZITHROMAX PO SCH (10:14)
[2017-02-17] MEDS: RIFADIN PO SCH (10:14)
--- NOTE | 2017-02-17 11:04 | Discharge Summary ---
Providers - Providers Date of Admission: 02/13/17 06:10 Date of discharge: 02/17/17 Attending physician: ALE FREEDMAN 02/14/17 15:14 Consult to Physician [CONS] Routine Consulting Provider: BELKIS ROSALES Reason For Exam: SIRS/HIV Place consult to:: DR. ALBA Notified:: DR. ALBA Phone number called:: [phone] Was contact made?: Yes If yes, spoke with:: Time called:: 14:14 Comment:: CAYDENALBERTO NOTIFIED 02/17/17 09:03 Consult to Physician [CONS] Routine Consulting Provider: IVAN NORIEGA Reason For Exam: pna, ? abscess Primary care physician: VIRGINIA WING Hospitalization Reason for admission: pna Condition: Serious Hospital course: 36 years old male with history of HIV infection diagnosed in 2013, has been followed-up at [place] [facility], however he was recently admitted at [facility] in [place], where he was diagnosed with a non- tuberculosis mycobacterial infection. Patient was given azithromycin, INH, rifampin, ethambutol. He takes Bactrim DS for prophylaxis and fluconazole. He is not taking ART. He has not had a follow-up at [facility]. Unfortunately, patient was readmitted on the 2016 due to generalized malaise, cold sensation, productive white sputum cough, almost syncope. He is taking all meds given by [facility] in [place]. Denies N/V/D, SOB, OCONNELL, urinary symptoms. The patient was evaluated by ID consultation. Initial white count 6.7. Hemoglobin 8.8. Creatinine 0.5. Lactic acid 0.8. Urinalysis is negative. Flu test negative. Chest x-ray showed localized increased markings in the right lower lobe. CT of the head showed mild ethmoid and sphenoid sinuses. Patient continued to have fevers throughout the hospitalization and therefore underwent CT scan of the chest which revealed bilateral lower lobe pneumonia and a right lower lobe lung abscess. Patient also with possible small developing second abscess and left lower lobe. The findings were discussed with the patient and he reported that he no longer wanted to stay for treatment. I instructed the patient that in order to leave the hospital, he would have to discharge AMA. I also expressed adamantly the risk for sepsis and potentially sudden related to this illness. The patient voiced understanding, but still wanted to leave AMA. Dedicated discharge time 34 minutes. Disposition: [id number] LEFT AGAINST MED ADVICE Time spent for discharge: 32 - Discharge Diagnoses (1) Anemia Status: Acute Qualifiers: Anemia type: unspecified type Qualified Code(s): D64.9 - Anemia, unspecified (2) Pneumonia Status: Acute Qualifiers: Pneumonia type: due to unspecified organism Laterality: unspecified laterality Lung location: unspecified part of lung Qualified Code(s): J18.9 - Pneumonia, unspecified organism (3) Noncompliance with medication regimen Status: Acute Core Measure Documentation - Palliative Care Palliative Care/ Comfort Measures: Not Applicable - Core Measures Any of the following diagnoses?: none Exam - Constitutional Vitals: Temp Pulse Resp BP Pulse Ox 98.6 F 72 20 97/51 99 02/17/17 08:03 02/17/17 08:03 02/17/17 08:03 02/17/17 08:03 02/17/17 08:03 General appearance: Present: no acute distress, well-nourished - EENT Eyes: Present: PERRL ENT: hearing intact, clear oral mucosa - Neck Neck: Present: supple, normal ROM - Respiratory Respiratory effort: normal Respiratory: bilateral: CTA - Cardiovascular Heart Sounds: Present: S1 & S2. Absent: rub, click - Extremities Extremities: pulses symmetrical, No edema Peripheral Pulses: within normal limits - Abdominal General gastrointestinal: Present: soft, non-tender, non-distended, normal bowel sounds Male genitourinary: Present: normal - Integumentary Integumentary: Present: clear, warm, dry - Musculoskeletal Musculoskeletal: gait normal, strength equal bilaterally - Psychiatric Psychiatric: appropriate mood/affect, intact judgment & insight - Neurologic Neurologic: CNII-XII intact, moves all extremities Plan Follow up with: VIRGINIA WING MD [Primary Care Provider] - 3-5 Days Forms: AMA Form
--- NOTE | 2017-02-17 11:32 | Progress Note ---
Assessment and Plan Assessment: 1) SIRS: Present on admission, manifested by fever, tachycardia, hypotension. Etiology unclear. 2) ?? Recent Non-TB mycobacterial infection: diagnosed at [facility] and given azithromycin, INH, rifampin, ethambutol. Unclear site ? lungs 3) HIV infection: diagnosed in 2013 unknown CD4/VL 4) Hypoxemia ? etiology ? PJP Plan: -obtain Chest CT -obtain [facility] medical records -start azithromycin 500 mg po qday, INH 300 mg q day, rifampin 600 mg q day, ethambutol 800 mg qday. -follow-up blood cultures -obtain AFB-blood cultures and cryptococcal serum antigen -continue bactrim DS and fluconazole -stop zosyn and vancomcyin for now -check CD4/VL Thank you Dr Santiago for your consultation, will follow up with you. Rubi Cadet MD Infectious Diseases Specialist [facility] M [phone] O [phone] Subjective Principal diagnosis: Sirs Interval history: Microbiology: Blood cultures: 02/13 neg Urine cultures: Respiratory cultures: Influenza: neg Current Antimicrobials: fluconazole zosyn vanco Objective - Exam Narrative Exam: General appearance: Alert in NAD, conversant Eyes: anicteric sclerae, moist conjunctivae; no lid-lag; PERRLA HENT: Atraumatic; oropharynx clear Neck: Trachea midline; supple, no thyromegaly or lymphadenopathy Lungs: scattered rhonchi CV: RRR Abdomen: Soft, non-tender Extremities: No peripheral edema or extremity lymphadenopathy Skin: Normal temperature, turgor and texture; no rash, ulcers or subcutaneous nodules Psych: Appropriate affect, alert and oriented to person, place and time. Neuro: alert and oriented x 3. Moving all extermities Lines: No CVL / PICC - Constitutional Vitals: Vital Signs Temp Pulse Resp BP Pulse Ox 98.6 F 72 20 97/51 99 02/17/17 08:03 02/17/17 08:03 02/17/17 08:03 02/17/17 08:03 02/17/17 08:03 Temperature -Last 24 Hours Temperature 98.6 F Temperature 99.9 F Temperature 100.9 F Temperature 99.3 F - Labs CBC & Chem 7: 02/16/17 04:50 02/16/17 04:50
== END 2017-02-17 10:15 | disposition left against medical advice (07) | DRG 974 ==
LOC: SUATTDRO 01:28 → ED 01:28 → 3A 06:10
PROVIDERS: ADMIT Internal Medicine; ATTEND Hospitalist
DX: B20 Human immunodeficiency virus [HIV] disease (principal); J85.1 Abscess of lung with pneumonia; B37.0 Candidal stomatitis; R65.10 Systemic inflammatory response syndrome (SIRS) of non-infectious origin without acute organ dysfunction; R55 Syncope and collapse; D64.9 Anemia, unspecified; J32.9 Chronic sinusitis, unspecified; F17.200 Nicotine dependence, unspecified, uncomplicated; Z79.899 Other long term (current) drug therapy; Z91.14 Patient's other noncompliance with medication regimen; Z82.49 Family history of ischemic heart disease and other diseases of the circulatory system; Z59.0 Homelessness
CPT/HCPCS: 36415; 70450; 71010; 71020; 71270; 80048; 80053; 81001; 82140; 85007; 85025; 85379; 85730; 86850; 86900; 86901; 87040; 87400; 96365; 96367; 96375; J1450; J1650; J1885; J1956; J2543; J3370; J7030; J7050; Q9967